=== PATIENT | male | born 1995 | race Caucasian/White ===

== ENCOUNTER 2024-05-14 22:54 | Emergency (ER) | payer SELFPAY ==
[~2024-05-14] VITALS: Ht 167.6 cm; Wt 74.8 kg
[2024-05-14 23:00] VITALS: BP 145/80; PULSE 96; RESP 20; TEMP 98.6; O2SAT 97
[2024-05-14] MEDS ORDERED: cefTRIAXone 1,000 MG VIAL ONE (23:47)
[2024-05-14] MEDS ORDERED: LIDOCAINE MPF 1% 5 ML ONE (23:48)
[2024-05-14] MEDS: cefTRIAXone 1,000 MG in LIDOCAINE MPF 1% 2.1 ML IM ONE (23:57)
[2024-05-15] MEDS ORDERED: NAPR-337 PO
[2024-05-15] MEDS ORDERED: CEPH-588 PO
== END 2024-05-15 00:11 | disposition home or self-care (01) ==
LOC: MED 22:54
DX: L03.113 Cellulitis of right upper limb (principal); Z79.899 Other long term (current) drug therapy
CPT/HCPCS: 96372; 99283; J0696; J2001